=== PATIENT | male | born 1940 | race American Indian/Alaskan Native ===

== ENCOUNTER 2022-01-19 11:40 | Emergency (ER) | payer MEDICARE, OTHER ==
[~2022-01-19 11:40] MED LIST: CALCIUM CHLORIDE 1,000 MG/10 ML SYRINGE IV ONE; EPINEPHrine 1 MG/10 ML SYRINGE ONE; SODIUM BICARB 8.4% 50 MEQ/50 ML SYRINGE IV ONE
[2022-01-19] MEDS ORDERED: SODIUM CHLORIDE 0.9% 1000 ML 1,000 ML IV ONE ×2 (12:01→12:08)
--- NOTE | 2022-01-19 12:08 | Emergency Department Report ---
ED CPR HPI - General Chief Complaint: Cardiac Arrest/CPR Stated Complaint: ALTERED MENTAL Time Seen by Provider: 01/19/22 11:58 Source: EMS Mode of arrival: Stretcher Limitations: Altered Mental Status - History of Present Illness Initial Comments: Patient is 82 years old male with history of COPD and a recent diagnosis of COVID-19. Patient brought to the emergency room from a local long term. EMS stated that initially patient was unresponsive and found to be bradycardic with a heart rate of 40 and a blood pressure of 80/32. EMS started pacing patient. Upon arrival to the ER, I found patient with no pulse or heart tone. ACLS protocol immediately initiated and CPR started. Patient already intubated by EMS. I confirm intubation with good breath sound on both side. Patient received epinephrine x2, sodium bicarb, calcium gluconate. After 2 rounds of CPR patient regained his pulse. Patient blood sugar is 176. MD Complaint: found unresponsive, stopped breathing -: minute(s) Place: [facility] Initial Findings in the Field: unresponsive, no respirations Treatments Prior to Arrival: intubation - Related Data Allergies Allergy/AdvReac Type Severity Reaction Status Date / Time No Known Allergies Allergy Unverified 01/19/22 11:43 ED Review of Systems ROS: Stated complaint: ALTERED MENTAL Other details as noted in HPI Comment: Unobtainable due to pts medical conditions ED Physical Exam - General Limitations: Altered Mental Status General appearance: other - Head Head exam: Present: atraumatic (CPR in progress), normocephalic, normal inspection - Eye Pupils: Present: miosis - ENT ENT exam: Present: mucous membranes dry - Neck Neck exam: Present: normal inspection - Respiratory Respiratory exam: Present: other (No spontaneous breathing.) - Cardiovascular Cardiovascular Exam: Present: other (No spontaneous heart tone.) - GI/Abdominal GI/Abdominal exam: Present: soft - Neurological Exam Neurological exam: Present: other (Intubated.) - Skin Skin exam: Present: warm ED Course Vital Signs 01/19/22 01/19/22 01/19/22 11:44 12:45 16:01 Pulse Rate 75 Blood Pressure 100/45 O2 Sat by Pulse 94 95 0 L Oximetry - Reevaluation(s) Reevaluation #1: 01/19/22 12:20 Called by the nurse that patient does not have a pulse. ACLS protocol immediately initiated and CPR started. Patient received 1 mg of epi, sodium bicarb and calcium gluconate. Patient regained his pulse again. I discussed the patient with his son who present at bedside and he stated that he will talk to his sister in [place] and they will decide if they want to continue re suscitation or put the patient DO NOT RESUSCITATE. ED Medical Decision Making - Medical Decision Making Patient is 82 years old male with history of COPD and a recent diagnosis of COVID-19. Patient brought to the emergency room from a local long term. EMS stated that initially patient was unresponsive and found to be bradycardic with a heart rate of 40 and a blood pressure of 80/32. EMS started pacing patient. Upon arrival to the ER, I found patient with no pulse or heart tone. ACLS protocol immediately initiated and CPR started. Patient already intubated by EMS. I confirm intubation with good breath sound on both side. Patient received epinephrine x2, sodium bicarb, calcium gluconate. After 2 rounds of CPR patient regained his pulse. Patient blood sugar is 176. Called by the nurse that patient does not have a pulse. ACLS protocol immediately initiated and CPR started. Patient received 1 mg of epi, sodium bicarb and calcium gluconate. Patient regained his pulse again. I discussed the patient with his son who present at bedside and he stated that he will talk to his sister in [place] and they will decide if they want to continue resuscitation or put the patient DO NOT RESUSCITATE. Patient son spoke to his sister and stated that they want him on DO NOT RESUSCITATE. Please see DNR paper signed by me and Dr Leon Winters. Patient lost his pulse again. Patient pronounced at 1:03 PM. Patient son at bedside. Critical Care Time: Yes Critical care time in (mins) excluding proc time.: 45 Critical care attestation.: If time is entered above; I have spent that time in minutes in the direct care of this critically ill patient, excluding procedure time. ED Disposition Clinical Impression: Cardiopulmonary arrest Disposition: 20 Is pt being admited?: No Condition: Stable Referrals: PRIMARY CARE, [Primary Care Provider] - 3-5 Days
[2022-01-19 12:45] LABS: ABG Base Excess -4.4 mmol/L (-2.0-3.0); ABG HCO3 19.2 mmol/L (20.0-26.0); ABG Methemoglobin 0.7 % (0.0-1.5); ABG Oxygen Saturation 97.7 % (95.0-99.0); ABG PCO2 28.5 mm Hg; ABG PH 7.447 pH Units (7.350-7.450); ABG PO2 95.7 mm Hg (80.0-90.0)
[2022-01-19 12:47] LABS: Bilirubin,Urine NEG (Negative); Blood,Urine LG (Negative); Color,Urine Yellow (Yellow); Mucus,Urine FEW /HPF; Urobilinogen,Urine < 2.0 mg/dL (<2.0)
[2022-01-19 12:50] VITALS: BP 100/45
[2022-01-19 12:50] LABS: WBC,Urine > 182.0 /HPF (0.0-6.0)
[2022-01-19] MEDS ORDERED: MIDAZOLAM/NS Drip 100mg/100ml 100 MG/100 ML BAG IV SCH (13:00)
--- NOTE | 2022-01-19 13:11 | XRay Report ---
CHEST 1 VIEW INDICATION: Altered Mental Status. COMPARISON: None FINDINGS: SUPPORT DEVICES: Endotracheal tube tip at the level of arlene should be retracted 3-4 cm. NG tube is curled in the proximal stomach. HEART: Within normal limits. LUNGS/PLEURA: Mild patchy bibasilar predominant and midlung airspace disease. ADDITIONAL FINDINGS: None. IMPRESSION: 1. Endotracheal tube should be retracted 3-4 cm. 2. Air space findings as above. Signer Name: Khari Varner MD Signed: 01/19/2022 1:06 PM Workstation Name: [id number]
--- NOTE | 2022-01-20 08:09 | Electrocardiograph Report ---
[facility] Test Date: 2022-01-19 Test Time: 12:20:51 Pat Name: VICKEY ALANIS Department: Room: Gender: M [employer] Supervisor: EPI : [id number] Requested By: SHASTA PAIZ Order Number: [id number] Reading MD: Ryan Lo Measurements Intervals [place] Rate: 88 P: DC: QRS: -58 QRSD: 132 T: 17 QT: 437 QTc: 528 Interpretive Statements Atrial fibrillation Paired ventricular premature complexes RBBB and LAFB No previous ECG available for comparison Electronically Signed On 01-20-2022 8:09:27 EDT by Ryan Lo
== END 2022-01-19 15:49 ==
LOC: EDBD → ED 11:40
DX: I46.9 Cardiac arrest, cause unspecified (principal)
CPT/HCPCS: 71045; 81001; 82803; 92950; 93005; 96360; 99291; J0171; J2250; J3490; J7030; 94002; 99285; Q0162